=== PATIENT | female | born 1990 | race African-American/Black ===

== ENCOUNTER → 2024-12-08 11:09 | Outpatient (REF) | payer OTHER, SELFPAY ==
[2024-12-08 12:28] LABS: Rubella Positive
[2024-12-08 12:53] LABS: Hepatitis B Surface Antibody Positive
[2024-12-10 07:27] LABS: Quantiferon Mitogen minus NIL 9.91 IU/mL; Quantiferon NIL 0.09 IU/mL; Quantiferon Plus TB1 minus NIL 0.02 IU/mL (<=0.34); Quantiferon Plus TB2 minus NIL 0.02 IU/mL (<=0.34); Quantiferon TB Gold Plus Negative (Negative)
== END ==
LOC: OHS 11:09
PROVIDERS: ATTENDING PHYSICIAN Nurse Practitioner Family
DX: Z23 Encounter for immunization (principal)
CPT/HCPCS: 36415; 86480; 86706; 86735; 86762; 86765; 86787